=== PATIENT | male | born 1955 | race Caucasian/White ===

== ENCOUNTER → 2016-07-25 | Day surgery (SDC) | payer BC ==
[~2016-07-25] MED LIST: ALBUTEROL17 GM INH; COZAAR; HYZAAR 100-25 T1 TAB PO; INDOCIN SR75 MG PO; LISINOPRIL-HCTZ1 T20 PO; MOBIC15 MG PO; VITAMIN D250000 UNIT PO; ZESTORETIC 10/11 TAB PO; ZESTORETIC 20-1 EAC1 PO; ZYLOPRIM PO; ZYLOPRIM100 MG PO
--- NOTE | ~2016-07-25 | OR ---
Unit #: [id number] #: [id number] Patient: MARCIN BARNETT JR [id number] [address] [address] [id number] O MR#: [id number] NAME: MARCIN BARNETT JR ROOM: Date of Procedure: 07/25/2016 Admission Date: 07/25/2016 Surgeon: Adolfo Adams M.D. : 1955 Attending Physician: Adolfo Adams M.D. Primary Care Physician: Isra Deras M.D. OPERATIVE REPORT PRIMARY CARE PHYSICIAN Isra Deras M.D. PREOPERATIVE DIAGNOSES Colorectal cancer surveillance. The patient has personal history of colon polyps. PROCEDURE PERFORMED Colonoscopy up to cecum with good prep and visualization. POSTOPERATIVE DIAGNOSES The patient had mild sigmoid and descending colon diverticulosis. Otherwise, examination was normal up to cecum. The quality of the prep was good. RECOMMENDATIONS Repeat colonoscopy in 5 years. SEDATION USED MAC. DESCRIPTION OF PROCEDURE Following detailed explanation of potential risks and complications of a colonoscopy, namely perforation, bleeding, and complication related to sedation, the patient was brought to GI lab and laid in the left lateral decubitus position. A digital rectal examination was performed which was normal. Lubricated tip of the Olympus video colonoscope was inserted through the anus, advanced under direct vision. The scope was advanced and passed up to sigmoid into descending colon. Multiple medium-sized diverticula were noted in this area. The scope tip was then navigated all the way up to cecum with visualization of the ileocecal valve and the appendiceal orifice. Preparation was good with good visualization, and photodocumentation was obtained. Successive segments of the colonic mucosa were examined upon withdrawal. The patient did not have any polyps nor any angiodysplasias or masses. Other than the left-sided diverticula, no other abnormalities were noted. No hemorrhoids were seen at the anal verge. The scope was withdrawn, and the patient was returned to the recovery area. He tolerated the procedure without any postprocedure complications. Dictated by... Unit #: [id number] #: [id number] Patient: MARCIN BARNETT JR Temitope Can/sophie TD: 07/25/2016 14:38 JOB #: [id number] CC: Isra Deras M.D. OPERATIVE REPORT Page 1 of 1 X Adolfo Adams MD PROCEDURE OPERATIVE NOTE
== END | disposition home or self-care (01) ==
LOC: COPS 08:40
DX: Z12.11 Encounter for screening for malignant neoplasm of colon (principal); Z86.010 Personal history of colon polyps; K57.30 Diverticulosis of large intestine without perforation or abscess without bleeding; I10 Essential (primary) hypertension; J45.909 Unspecified asthma, uncomplicated
CPT/HCPCS: J2250